=== PATIENT | male | born 1985 | race Caucasian/White ===

== ENCOUNTER 2019-05-22 06:29 | Emergency (ER) | payer SELFPAY ==
[~2019-05-22] VITALS: Ht 172.7 cm; Wt 81.0 kg
[2019-05-22] MEDS ORDERED: ACETAMINOPHEN WITH CODEINE 300/30MG TABLET PO ONE (07:00)
[2019-05-22] MEDS ORDERED: KETOROLAC 60MG/2ML VIAL IM ONE (09:15)
[2019-05-22 10:11] VITALS: BP 130/80
== END 2019-05-22 10:18 | disposition home or self-care (01) ==
LOC: ER 06:29
DX: S00.03XA Contusion of scalp, initial encounter (principal); M79.605 Pain in left leg; V03.90XA Pedestrian on foot injured in collision with car, pick-up truck or van, unspecified whether traffic or nontraffic accident, initial encounter; Y93.01 Activity, walking, marching and hiking; Y92.410 Unspecified street and highway as the place of occurrence of the external cause
CPT/HCPCS: 70450; 72125; 72170; 73562; 96372; 99285; J1885